=== PATIENT | male | born 1955 | race Caucasian/White ===

== ENCOUNTER 2017-07-22 13:25 | Emergency (ER) | payer OTHER ==
[2017-07-22 13:35] VITALS: BP 147/109; PULSE 107; RESP 18; TEMP 98.2; O2SAT 97
--- NOTE | 2017-07-22 14:17 | EDPHY ---
H & P Time Seen by Provider: 07/22/17 13:49 HPI/ROS: CHIEF COMPLAINT: right knee pain HISTORY OF PRESENT ILLNESS: 62-year-old male presents with right knee pain. He was skiing at [place] this morning, twisted his knee and felt a pop. Immediate onset of moderate pain and difficulty skiing. He did not fall. Able to bear weight. No prior knee injury. ROS: No numbness, weakness, bleeding, syncopal episode, other injury. Past Medical/Surgical History: Shoulder surgery Social History: Orthopedic surgeon: Dr. Spencer Smoking Status: Never smoked Physical Exam: Alert and oriented, pleasant Extremities: right knee-swelling and tenderness over the medial aspect of the right knee, no joint effusion, pain and laxity with valgus stress Skin: intact Neuro: Motor and sensory intact Vascular: Capillary refill brisk distally. Constitutional: Initial Vital Signs Temperature (C) 36.8 C 07/22/17 13:32 Heart Rate 107 H 07/22/17 13:32 Respiratory Rate 18 07/22/17 13:32 Blood Pressure 147/109 H 07/22/17 13:32 O2 Sat (%) 97 07/22/17 13:32 O2 Delivery Mode Room Air Allergies/Adverse Reactions: No Known Allergies Allergy (Unverified 07/22/17 13:32) Home Medications: Medication Instructions Recorded NK [No Known Home Meds] 07/22/17 Medical Decision Making - Diagnostics Imaging Results: Knee x-ray independently reviewed by me reveals no fracture. ED Course/Re-evaluation: This patient presents with an MCL strain. He was placed in a knee immobilizer. He will follow up with his orthopedic surgeon, Dr. Spencer, in the office. Departure - Departure Disposition: Home, Routine, Self-Care Clinical Impression: Sprain of medial collateral ligament of right knee Condition: Good Instructions: Knee Pain (ED), Knee Immobilizer (ED) Additional Instructions: Use the knee immobilizer for comfort. Ibuprofen 600 mg 3 times daily while the pain persists. Ice every 2 hr as needed for pain and swelling. Referrals: Deepak Galvez [Primary Care Provider] - As per Instructions Angi Spencer MD [Medical Doctor] - As per Instructions (Call to make an appointment. )
== END 2017-07-22 14:44 | disposition home or self-care (01) ==
DX: S83.411A Sprain of medial collateral ligament of right knee, initial encounter (principal); X58.XXXA Exposure to other specified factors, initial encounter; Y99.8 Other external cause status; Y93.23 Activity, snow (alpine) (downhill) skiing, snowboarding, sledding, tobogganing and snow tubing
CPT/HCPCS: L1830